=== PATIENT | female | born 1970 | race Caucasian/White ===

== ENCOUNTER 2022-05-25 05:40 | Outpatient (CLI) | payer SELFPAY ==
[~2022-05-25] VITALS: Ht 170.2 cm; Wt 105.2 kg
[2022-05-25] MEDS ORDERED: BUSP15TA60 PO (11:36)
[2022-05-25] MEDS ORDERED: HYDR-3781 PO (11:36)
[2022-05-25] MEDS ORDERED: VENL75TA2 PO (11:36)
[2022-05-25] MEDS ORDERED: ACHD5005 PO (11:36)
[2022-05-25] MEDS ORDERED: PARO30TA3 PO (11:36)
[2022-05-25] MEDS ORDERED: ALPR1TAB7 PO (11:36)
[2022-05-25] MEDS ORDERED: VENL150C98 PO (11:36)
== END 2022-05-25 11:47 | disposition home or self-care (01) ==
LOC: PREOP 05:40
PROVIDERS: ATTEND Surgery
DX: Z01.818 Encounter for other preprocedural examination (principal)

== ENCOUNTER 2022-06-03 08:05 | Day surgery (SDC) | payer OTHER ==
[~2022-06-03] VITALS: Ht 170.2 cm; Wt 105.2 kg
[2022-06-03] VITALS (7 sets, daily range): BP systolic 112–132; BP diastolic 72–90
[~2022-06-03 08:05] MED LIST: ACHD5005 PO; ALPR1TAB7 PO; BUSP15TA60 PO; HYDR-3781 PO; PARO30TA3 PO; VENL150C98 PO; VENL75TA2 PO
[2022-06-03] MEDS ORDERED: LACTATED RINGERS 1,000 ML IV ONE (08:16)
[2022-06-03] MEDS ORDERED: HURRICAINE EXT TUBE (BENZOCAINE) XX PRN (08:30)
[2022-06-03] MEDS ORDERED: LACTATED RINGERS 1,000 ML IV STA (08:30)
--- NOTE | 2022-06-03 08:55 | Progress Note-Pre Operative ---
Pre-Operative Progress Note Date of Available H&P: May 16, 2022 Date H&P Reviewed: Jun 03, 2022 Time H&P Reviewed: 08:54 History & Physical: H&P Reviewed, Patient Examed, No changes noted Pre-Operative Diagnosis: epigastric pain, screening colonoscopy YANELY BANKS DO Jun 03, 2022 08:55
[2022-06-03] MEDS ORDERED: PROPOFOL INJECTION 50 ML IV ONE (09:01)
[2022-06-03] MEDS ORDERED: MIDAZOLAM 2 MG/2 ML (VERSED) VIAL ONE (09:01)
--- NOTE | 2022-06-03 10:01 | Anesthesia-General Post-Op ---
MAC Patient Condition Mental Status/LOC: Same as Preop Cardiovascular: Satisfactory Nausea/Vomiting: Absent Respiratory: Satisfactory Pain: Controlled Complications: Absent Post Op Complications Complications None Follow Up Care/Instructions Patient Instructions None needed. Anesthesiology Discharge Order Discharge Order Patient is doing well, no complaints, stable vital signs, no apparent adverse anesthesia problems. No complications reported per nursing. FATIMAH NEELY CRNA Jun 03, 2022 10:01
[2022-06-03] MEDS ORDERED: PANT40TA2 PO (10:11)
--- NOTE | 2022-06-03 10:11 | Discharge Inst-Simple/Standard ---
Discharge Inst-Standard Discharge Medications New, Converted or Re-Newed RX: Transmitted to Pharmacy Patient Instructions/Follow Up Plan of Care/Instructions/FU: 2 weeks Joey Activity as Tolerated: Yes Discharge Diet: Regular Diet (ulcer diet) YANELY BANKS DO Jun 03, 2022 10:11
--- NOTE | 2022-06-03 10:14 | Progress Note-Post Operative ---
Post-Operative Progess Note Surgeon (s)/[employer] Librarian (s) Surgeon YANELY BANKS DO [employer] Librarian: na Pre-Operative Diagnosis epigastric pain, screening colonoscopy Post-Operative Diagnosis gastritis, small gastric ulcer, sigmoid polyp Procedure & Operative Findings Date of Procedure 06/03/22 Procedure Performed/Findings egd c biopsies, colonoscopy c snare polypectomy Anesthesia Type per protein chemist Estimated Blood Loss Estimated blood loss (mL): none Specimens/Packing Specimens Removed antrum, body, ge, sigmoid polyp YANELY BANKS DO Jun 03, 2022 10:14
--- NOTE | 2022-06-03 20:51 | OPERATIVE REPORT ---
DATE OF SERVICE: 06/03/2022 PREOPERATIVE DIAGNOSES: Epigastric abdominal pain, screening colonoscopy. POSTOPERATIVE DIAGNOSES: Gastritis, small gastric ulcer, sigmoid polyp. PROCEDURE: EGD with biopsies, colonoscopy with snare polypectomy. SURGEON: Yanely Cook DO ANESTHESIA: Per DIESEL LOCOMOTIVE FIRER/FIREMAN. BLOOD LOSS: None. COMPLICATIONS: None. SPECIMENS: Antrum, body, GE junction and sigmoid polyp. INDICATIONS: The patient is a 51-year-old female who was referred due to epigastric abdominal pain. She also needs screening colonoscopy. She understands risks and benefits of procedure and wishes to proceed. Consent was signed in the chart. DESCRIPTION OF PROCEDURE: The patient was taken to the endoscopy suite, placed in left lateral recumbent position. Timeout was performed. Scope was inserted in mouth, down the esophagus, stomach and into the duodenum without difficulty. No polyps, masses or ulcerations. Scope was slowly retracted back into the stomach where it was further insufflated. Gastritis appearance present. Biopsy of the antrum was obtained. Scope was slowly retracted back into the body, some more inflammation and also a small gastric ulcer. Biopsy of this area was obtained. Scope was retroflexed noting no other pathology. Scope was returned to its normal position, slowly withdrawn into the distal esophagus. No polyps, masses or ulcerations. Biopsy of GE junction was obtained. Scope was slowly retracted back noting no other pathology. Digital rectal exam was performed. No palpable polyps, masses or ulcerations. Scope was inserted in the rectum, advanced all the way to cecum with minimal difficulty. Prep was adequate. Scope was slowly retracted back. No polyps, masses or ulcerations within the cecum, ascending, transverse, descending colon and sigmoid colon. The distal portion of small polyp was present, which snare polypectomy was performed. Scope was then continuously retracted back where it was also retroflexed in the rectum, noting no other pathology. Scope was returned to its normal position, slowly withdrawn until completely removed. The patient tolerated the procedure well without any complications. She was taken to recovery room in stable condition. RECOMMENDATIONS: The patient will need repeat colonoscopy in 5 years due to polyps. The patient with a gastric ulcer and gastritis, we will start on Protonix 40 mg daily. We will follow up in 2 weeks to discuss pathology results. Any worsening conditions be seen at that time. cc: Brenda Perera -----requested, unable to deliver. Job ID: [id number] DocumentID: [id number] Dictated Date: 06/03/2022 10:18:00 Advertising Sales Executive Date: 06/03/2022 15:31:38 Dictated By: YANELY COOK DO
== END 2022-06-03 10:55 | disposition home or self-care (01) ==
LOC: ENDO 08:05
PROVIDERS: ATTEND Surgery
DX: Z12.11 Encounter for screening for malignant neoplasm of colon (principal); D12.5 Benign neoplasm of sigmoid colon; K29.70 Gastritis, unspecified, without bleeding; K25.9 Gastric ulcer, unspecified as acute or chronic, without hemorrhage or perforation; K21.00 Gastro-esophageal reflux disease with esophagitis, without bleeding; E66.9 Obesity, unspecified; Z68.36 Body mass index [BMI] 36.0-36.9, adult; Z88.5 Allergy status to narcotic agent; Z88.6 Allergy status to analgesic agent; Z79.899 Other long term (current) drug therapy